=== PATIENT | male | born 1970 | race Caucasian/White ===

== ENCOUNTER 2017-10-15 08:00 | Outpatient (CLI) | payer MEDICAID | END 2017-10-15 08:01 | disposition home or self-care (01) | LOC: LAB.N 08:00 | PROVIDERS: ATTEND Nurse Practitioner | DX: I82.429 Acute embolism and thrombosis of unspecified iliac vein (principal) | CPT/HCPCS: 85610; 87070; 87077; 87205 ==

== ENCOUNTER 2017-10-20 08:00 | Outpatient (CLI) | payer MEDICAID | END 2017-10-20 08:01 | disposition home or self-care (01) | LOC: LAB.N 08:00 | PROVIDERS: ATTEND Nurse Practitioner | DX: I82.4Z1 Acute embolism and thrombosis of unspecified deep veins of right distal lower extremity (principal) | CPT/HCPCS: 85610 ==

== ENCOUNTER 2017-10-21 08:00 | Outpatient (CLI) | payer MEDICAID ==
[2017-10-21 13:14] LABS: HB2 TOTAL 16.3 g/dL; HEMOGLOBIN A1C 1.08 g/dL; HEMOGLOBIN A1C % 8.2 % (4.6-6.2)
[2017-10-21 13:25] LABS: THYROID STIMULATING HORMONE 5.89 uIU/mL (0.34-5.60)
[2017-10-21 13:30] LABS: ALBUMIN/GLOBULIN RATIO 1.1 (1.0-2.2); ALKALINE PHOSPHATASE 69 IU/L (42-121); ALT ALANINE AMINOTRANSFERASE 39 IU/L (10-60); AST ASPARTATE AMINOTRANSFERASE 17 IU/L (10-42); BILIRUBIN,TOTAL 0.5 mg/dL (0.2-1.0); BUN - BLOOD UREA NITROGEN 11 mg/dL (6-20); CALCIUM 9.3 mg/dL (8.5-10.3); CARBON DIOXIDE - CO2 24 mmol/L (21-32); CHLORIDE 101 mmol/L (101-111); CHOLESTEROL 218 mg/dL; CREATININE 1.1 mg/dL (0.6-1.2); GFR - MDRD 71 (>89); GLUCOSE 126 mg/dL (70-100); HDL CHOLESTEROL 31 mg/dL; SODIUM 133 mmol/L (135-145); TOTAL PROTEIN 7.6 g/dL (6.7-8.2)
[2017-10-21 13:49] LABS: LDL CHOLESTEROL,DIRECT 123 mg/dL
[2017-10-21 14:01] LABS: FREE T4 (FREE THYROXINE) 0.86 ng/dL (0.58-1.64)
== END 2017-10-21 08:01 | disposition home or self-care (01) ==
LOC: LAB.N 08:00
PROVIDERS: ATTEND Nurse Practitioner
DX: I82.4Z1 Acute embolism and thrombosis of unspecified deep veins of right distal lower extremity (principal); E11.9 Type 2 diabetes mellitus without complications
CPT/HCPCS: 36415; 80053; 80061; 82043; 83036; 83721; 84439; 84443; 85610

== ENCOUNTER 2017-10-22 16:35 | Outpatient (CLI) | payer MEDICAID | END 2017-10-22 16:36 | disposition home or self-care (01) | LOC: LAB.N 16:35 | PROVIDERS: ATTEND Nurse Practitioner | DX: I82.4Z1 Acute embolism and thrombosis of unspecified deep veins of right distal lower extremity (principal) | CPT/HCPCS: 85610 ==

== ENCOUNTER 2017-10-25 15:27 | Outpatient (CLI) | payer MEDICAID | END 2017-10-25 15:28 | disposition home or self-care (01) | LOC: LAB.N 15:27 | PROVIDERS: ATTEND Family Medicine | DX: I74.3 Embolism and thrombosis of arteries of the lower extremities (principal); Z79.01 Long term (current) use of anticoagulants | CPT/HCPCS: 85610 ==

== ENCOUNTER 2017-10-27 07:37 | Outpatient (CLI) | payer MEDICAID | END 2017-10-27 07:38 | LOC: LAB.N 07:37 | PROVIDERS: ATTEND Family Medicine | DX: I74.3 Embolism and thrombosis of arteries of the lower extremities (principal); Z79.01 Long term (current) use of anticoagulants | CPT/HCPCS: 85610 ==

== ENCOUNTER 2017-11-01 08:00 | Outpatient (CLI) | payer MEDICAID | END 2017-11-01 08:01 | LOC: LAB.N 08:00 | PROVIDERS: ATTEND Family Medicine | DX: I74.3 Embolism and thrombosis of arteries of the lower extremities (principal); Z79.01 Long term (current) use of anticoagulants | CPT/HCPCS: 85610 ==

== ENCOUNTER 2017-11-05 09:00 | Outpatient (CLI) | payer MEDICAID | END 2017-11-05 09:01 | disposition home or self-care (01) | LOC: LAB.N 09:00 | PROVIDERS: ATTEND Family Medicine | DX: I74.3 Embolism and thrombosis of arteries of the lower extremities (principal); Z79.01 Long term (current) use of anticoagulants | CPT/HCPCS: 85610 ==

== ENCOUNTER 2017-11-10 07:59 | Outpatient (CLI) | payer MEDICAID | END 2017-11-10 08:00 | LOC: LAB.N 07:59 | PROVIDERS: ATTEND Family Medicine | DX: I74.3 Embolism and thrombosis of arteries of the lower extremities (principal); Z79.01 Long term (current) use of anticoagulants | CPT/HCPCS: 85610 ==

== ENCOUNTER 2017-11-19 07:37 | Outpatient (CLI) | payer MEDICAID | END 2017-11-19 07:38 | disposition home or self-care (01) | LOC: LAB.N 07:37 | PROVIDERS: ATTEND Family Medicine | DX: I74.3 Embolism and thrombosis of arteries of the lower extremities (principal); Z79.01 Long term (current) use of anticoagulants | CPT/HCPCS: 85610 ==

== ENCOUNTER 2017-11-22 07:53 | Outpatient (CLI) | payer MEDICAID | END 2017-11-22 07:54 | disposition home or self-care (01) | LOC: LAB.N 07:53 | PROVIDERS: ATTEND Family Medicine | DX: I74.3 Embolism and thrombosis of arteries of the lower extremities (principal) | CPT/HCPCS: 85610 ==

== ENCOUNTER 2017-11-26 07:35 | Outpatient (CLI) | payer MEDICAID | END 2017-11-26 07:36 | disposition home or self-care (01) | LOC: LAB.N 07:35 | PROVIDERS: ATTEND Family Medicine | DX: I74.3 Embolism and thrombosis of arteries of the lower extremities (principal); Z79.01 Long term (current) use of anticoagulants | CPT/HCPCS: 85610 ==

== ENCOUNTER 2017-12-03 07:33 | Outpatient (CLI) | payer MEDICAID | END 2017-12-03 07:34 | disposition home or self-care (01) | LOC: LAB.N 07:33 | PROVIDERS: ATTEND Family Medicine | DX: I74.3 Embolism and thrombosis of arteries of the lower extremities (principal); Z79.01 Long term (current) use of anticoagulants | CPT/HCPCS: 85610 ==

== ENCOUNTER 2017-12-13 07:32 | Outpatient (CLI) | payer MEDICAID | END 2017-12-13 07:33 | disposition home or self-care (01) | LOC: LAB.N 07:32 | PROVIDERS: ATTEND Family Medicine | DX: I74.3 Embolism and thrombosis of arteries of the lower extremities (principal); Z79.01 Long term (current) use of anticoagulants | CPT/HCPCS: 85610 ==

== ENCOUNTER 2017-12-24 07:35 | Outpatient (CLI) | payer MEDICAID | END 2017-12-24 07:36 | disposition home or self-care (01) | LOC: LAB.N 07:35 | PROVIDERS: ATTEND Family Medicine | DX: I74.3 Embolism and thrombosis of arteries of the lower extremities (principal); Z79.01 Long term (current) use of anticoagulants | CPT/HCPCS: 85610 ==

== ENCOUNTER 2018-01-03 10:29 | Outpatient (CLI) | payer MEDICAID | END 2018-01-03 10:30 | disposition home or self-care (01) | LOC: LAB.N 10:29 | PROVIDERS: ATTEND Family Medicine | DX: I74.3 Embolism and thrombosis of arteries of the lower extremities (principal); Z79.01 Long term (current) use of anticoagulants | CPT/HCPCS: 85610 ==

== ENCOUNTER 2018-01-14 07:32 | Outpatient (CLI) | payer MEDICAID | END 2018-01-14 07:33 | disposition home or self-care (01) | LOC: LAB.N 07:32 | PROVIDERS: ATTEND Family Medicine | DX: I74.3 Embolism and thrombosis of arteries of the lower extremities (principal); Z79.01 Long term (current) use of anticoagulants | CPT/HCPCS: 85610 ==

== ENCOUNTER 2018-01-17 08:00 | Outpatient (CLI) | payer MEDICAID | END 2018-01-17 08:01 | disposition home or self-care (01) | LOC: LAB.N 08:00 | PROVIDERS: ATTEND Family Medicine | DX: Z79.01 Long term (current) use of anticoagulants (principal) | CPT/HCPCS: 85610 ==

== ENCOUNTER 2018-01-21 07:29 | Outpatient (CLI) | payer MEDICAID | END 2018-01-21 07:30 | disposition home or self-care (01) | LOC: LAB.N 07:29 | PROVIDERS: ATTEND Family Medicine | DX: I74.3 Embolism and thrombosis of arteries of the lower extremities (principal); Z79.01 Long term (current) use of anticoagulants | CPT/HCPCS: 85610 ==

== ENCOUNTER 2018-02-18 09:11 | Outpatient (CLI) | payer MEDICAID | END 2018-02-18 09:12 | disposition home or self-care (01) | LOC: LAB.N 09:11 | PROVIDERS: ATTEND Family Medicine | DX: I74.3 Embolism and thrombosis of arteries of the lower extremities (principal); Z79.01 Long term (current) use of anticoagulants | CPT/HCPCS: 85610 ==

== ENCOUNTER 2018-03-14 17:05 | Emergency (ER) | payer MEDICAID ==
[2018-03-14] MEDS ORDERED: METOCLOPRAMIDE 10 MG/2 ML VIAL IVP STA (17:50)
[2018-03-14] MEDS ORDERED: DEXAMETHASONE 10 MG/ML VIAL IVP STA (17:50)
[2018-03-14] MEDS ORDERED: diphenhydrAMINE INJ 50 MG/ML VIAL IVP STA (17:50)
[2018-03-14] MEDS ORDERED: SODIUM CHLORIDE 0.9% 1,000 ML IV ONE (17:50)
--- NOTE | 2018-03-14 17:52 | ED Physician Documentation ---
PD HPI HEADACHE - Stated complaint Stated Complaint: INFANTE - Chief complaint Chief Complaint: Neuro - History obtained from History obtained from: Patient - History of Present Illness Timing - onset: Today (47-year-old gentleman with a history of DVT on warfarin, per him the goal is 4-5 INR. He had a headache a month ago with odd neurologic symptoms. Was seen at [facility] and per him and workup was negative and he felt better after migraine cocktail. The headache recurred today, gradual onset left-sided headache associated with photophobia and blurry vision in the left eye. There is no fever. He has vomited.) Review of Systems Constitutional: denies: Fever, Chills Eyes: reports: Decreased vision, Photophobia. denies: Loss of vision Nose: denies: Rhinorrhea / runny nose, Congestion, Epistaxis PD PAST MEDICAL HISTORY - Past Medical History Cardiovascular: Hypertension, High cholesterol, SD Respiratory: CPAP use Endocrine/Autoimmune: Type 2 diabetes : None HEENT: None Psych: None Derm: Other drug resistant infections - Past Surgical History Past Surgical History: Yes Ortho: Spine surgery Cardiovascular: Coronary stent - Present Medications Home Medications: Ambulatory Orders Medication Instructions Recorded Confirmed Multivitamin [Multi-Vitamin Daily] 2.5 each PO ONCEDAILY 12/12/12 05/16/15 Omeprazole 40 mg PO DAILY 09/03/13 05/16/15 metFORMIN [Glucophage] 500 mg PO BIDWM 07/16/14 05/16/15 Cholecalciferol (Vitamin D3) 5,000 unit PO DAILY 08/09/14 05/16/15 [Vitamin D3] Promethazine [Phenergan] 25 - 50 mg PO Q6H PRN #10 tab 02/14/15 05/16/15 Aspirin Chewable [[place]reet 81 mg pe 03/14/18 Aspirin] [place]-3S/Dha/Epa/Fish Oil [Fish 1 cap 03/14/18 Oil 1,200 mg Softgel] SUMAtriptan [Imitrex] 25 mg PO BID PRN #10 tablet 03/14/18 Warfarin [Coumadin] 7.5 mg pe 03/14/18 - Allergies Allergies/Adverse Reactions: Allergies Allergy/AdvReac Type Severity Reaction Status Date / Time morphine Allergy Itching Verified 03/14/18 17:37 risperidone Allergy Unknown Verified 03/14/18 17:36 - Social History Does the pt smoke?: Yes Smoking Status: Current every day smoker Does the pt drink ETOH?: Yes Does the pt have substance abuse?: Yes - Immunizations Immunizations are current?: Yes - POLST Patient has POLST: No PD ED PE NORMAL - Vitals Vital signs reviewed: Yes - General General: Alert and oriented X 3, No acute distress - HEENT HEENT: PERRL, EOMI, Pharynx benign - Neck Neck: Supple, no meningeal sign, No bony TTP - Neuro Neuro: Alert and oriented X 3, side guider 2-12 intact Eye Opening: Spontaneous Motor: Obeys Commands Verbal: Oriented GCS Score: 15 - Psych Psych: Normal mood, Normal affect Results - Vitals Vitals: Vital Signs - 24 hr 03/14/18 17:12 Temperature 36.8 C Heart Rate 111 H Respiratory 18 Rate Blood Pressure 179/111 H O2 Saturation 97 Oxygen O2 Source Room air - Rads (name of study) CT Head Radiology: EMP read contemporaneously (Small white matter abnormality left insula, potential lacunar infarct.) PD MEDICAL DECISION MAKING - ED course ED course: 47-year-old gentleman with what sounds like new onset migraines. Given his medical history of course and anticoagulation status CT imaging was done without pertinent acute findings. After Reglan, Benadryl, dexamethasone he was feeling much better and after a dose of Compazine his headache was gone. - Sepsis Event Vital Signs: Vital Signs - 24 hr 03/14/18 17:12 Temperature 36.8 C Heart Rate 111 H Respiratory 18 Rate Blood Pressure 179/111 H O2 Saturation 97 Oxygen O2 Source Room air Departure - Departure Disposition: 01 Home, Self Care Clinical Impression: Headache Qualifiers: Headache type: unspecified Headache chronicity pattern: acute headache Intractability: not intractable Qualified Code(s): R51 - Headache Condition: Good Record reviewed to determine appropriate education?: Yes Instructions: ED Headache Migraine Prescriptions: SUMAtriptan [Imitrex] 25 mg PO BID PRN #10 tablet PRN Reason: Headache Comments: As discussed, recommend following up with a neurologist. The closest is in [place], . Return if worse.
[2018-03-14 18:08] LABS: BASOPHILS # (AUTO) 0.2 10^3/uL (0.0-0.1); BASOPHILS % (AUTO) 1.2 %; EOSINOPHILS # (AUTO) 0.2 10^3/uL (0.0-0.7); EOSINOPHILS % (AUTO) 1.9 %; HGB - HEMOGLOBIN 14.7 g/dL (14.0-18.0); LYMPHOCYTES # (AUTO) 2.8 10^3/uL (1.5-3.5); LYMPHOCYTES % (AUTO) 22.6 %; MEAN CORPUSCULAR HEMOGLOBIN 31.5 pg (27.0-31.0); MEAN CORPUSCULAR HGB CONC 34.2 g/dL (32.0-36.0); MEAN PLATELET VOLUME 8.3 fL (7.4-11.4); MONOCYTES # (AUTO) 0.7 10^3/uL (0.0-1.0); MONOCYTES % (AUTO) 5.5 %; NEUTROPHILS # (AUTO) 8.4 10^3/uL (1.5-6.6); NEUTROPHILS % (AUTO) 68.8 %; PLT - PLATELET COUNT 264 10^3/uL (130-450); RED BLOOD COUNT 4.68 10^6/uL (4.70-6.10); WHITE BLOOD COUNT 12.2 x10^3/uL (4.8-10.8)
[2018-03-14 18:20] LABS: ALBUMIN 4.1 g/dL (3.2-5.5); ALBUMIN/GLOBULIN RATIO 1.2 (1.0-2.2); BILIRUBIN,TOTAL 0.4 mg/dL (0.2-1.0); CALCIUM 9.1 mg/dL (8.5-10.3); CREATININE 0.9 mg/dL (0.6-1.2); TOTAL PROTEIN 7.4 g/dL (6.7-8.2)
--- NOTE | 2018-03-14 18:21 | CT Report ---
Reason: headache Procedure Date: 03/14/2018 Accession Number: [id number] / [id number] Procedure: CT - Head W/O CPT Code: FULL RESULT: EXAM: CT HEAD EXAM DATE: 03/14/2018 06:06 PM. CLINICAL HISTORY: 47-year-old presenting with headache, light sensitivity, and left arm weakness COMPARISON: FACIAL BONES W/ 04/29/2015 3:09 PM. TECHNIQUE: Multiaxial CT images were obtained from the foramen magnum to the vertex. Reformats: Sagittal and coronal. IV contrast: None. In accordance with CT protocol optimization, one or more of the following dose reduction techniques were utilized for this exam: automated exposure control, adjustment of mA and/or KV based on patient size, or use of iterative reconstructive technique. FINDINGS: Parenchyma: No acute parenchymal hemorrhage, mass, or midline shift. There is an area of white matter hypoattenuation seen with Hounsfield unit measuring less than 20 and involving the anterior left insula (series 3, image 17) that may represent lacunar infarct. Otherwise the cortical mantle and deep lara nucleus lara-white differentiation remains distinct. There is no definite evidence of moderate to large acute infarct. Cortical volume appears age-appropriate. Extraaxial Spaces: Normal for age. No subdural or epidural collections identified. Ventricles: Normal in size and position. Sinuses and Orbits: Imaged paranasal sinuses, orbits, and mastoids show no significant abnormality. Bones: No evidence of fracture or calvarial defect. Other: None. IMPRESSION: 1. No definite acute infarct seen. If there is clinical concern for acute stroke or symptoms persist an MR brain can be considered to evaluate for small or subtle pathology. 2. Small area of white matter abnormality with Hounsfield units measuring less than 20 within the anterior left insula suggesting potential lacunar infarct or prominent perivascular space. 3. No acute intracranial hemorrhage, mass, hydrocephalus, or midline shift. RADIA
[2018-03-14 18:23] LABS: INR 2.4 (0.8-1.2); PT - PROTHROMBIN TIME 26.7 secs (9.9-12.6)
[2018-03-14 18:45] VITALS: BP 133/90
[2018-03-14] MEDS ORDERED: PROCHLORPERAZINE 10 MG/2 ML VIAL IVP STA (18:45)
== END 2018-03-14 19:39 | disposition home or self-care (01) ==
LOC: ED 17:05
DX: R51 Headache (principal); I10 Essential (primary) hypertension; E11.9 Type 2 diabetes mellitus without complications; Z79.01 Long term (current) use of anticoagulants; Z79.84 Long term (current) use of oral hypoglycemic drugs; F17.200 Nicotine dependence, unspecified, uncomplicated; Z79.82 Long term (current) use of aspirin
CPT/HCPCS: 36415; 70450; 80053; 83690; 85025; 85610; 96374; 96375; 99283; J1200; J2765

== ENCOUNTER 2018-03-28 07:35 | Outpatient (CLI) | payer MEDICAID | END 2018-03-28 07:36 | disposition home or self-care (01) | LOC: LAB.N 07:35 | PROVIDERS: ATTEND Family Medicine | DX: I74.3 Embolism and thrombosis of arteries of the lower extremities (principal); Z79.01 Long term (current) use of anticoagulants | CPT/HCPCS: 85610 ==